=== PATIENT | male | born 1985 | race Caucasian/White ===

== ENCOUNTER 2017-08-16 11:21 | Emergency (ER) | payer OTHER, SELFPAY ==
--- NOTE | 2017-08-16 11:35 | ED.MALEGU ---
HPI - Male Genitourinary General Chief complaint: Urogenital-Male Stated complaint: KIDNEY STONES Time Seen by Provider: 08/16/17 11:29 Source: patient Mode of arrival: ambulatory Limitations: no limitations History of Present Illness HPI Narrative: 32-year-old male sent over from the walk-in clinic for concerns of a right-sided ureteral stone. Patient states that for the past 2 weeks he has had off and on pain in his right flank that has radiated to his groin. Has had blood in his urine. States that he is still urinating without problems. Has not had any abdominal pain or vomiting. No testicular pain. States he has had a renal stone in the past but that was greater than 10 years ago. He states this feels similar to that. He states that he was unable to passed that stone on his own and had to have a stent placed. Related Data Home Medications Medication Instructions Recorded Confirmed Marijuana 1 ea PRN PRN 08/16/17 08/16/17 ibuprofen 1 tab PO PRN PRN 08/16/17 08/16/17 Previous Rx's Medication Instructions Recorded tamsulosin 0.4 mg PO DAILY #14 cap 08/16/17 Allergies Allergy/AdvReac Type Severity Reaction Status Date / Time No Known Drug Allergies Allergy Unverified 08/16/17 11:02 Review of Systems Constitutional Denies chills, Denies fever(s), Denies lethargy and Denies weakness Cardiovascular Denies chest pain, Denies irregular heart rhythm, Denies lightheadedness, Denies palpitations, Denies dyspnea, Denies dyspnea on exertion and Denies orthopnea Respiratory Denies cough, Denies dyspnea, Denies dyspnea on exertion and Denies wheezing Gastrointestinal Gastrointestinal: Denies diarrhea, Denies nausea and Denies vomiting Genitourinary Reports hematuria, Denies difficulty urinating, Denies genital lesions, Denies genital pain and Denies dysuria Musculoskeletal Denies back pain, Denies muscle weakness, Denies numbness and Denies tingling Integumentary/Breasts Denies pruritus, Denies erythema, Denies rash and Denies wounds Neurologic Denies numbness, Denies tingling and Denies weakness Endocrine Denies palpitations Hematologic/Lymphatic Denies easy bruising Allergic/Immunologic Denies wheezing PFSH Social History Smoking Status: Current every day smoker Exam Initial Vital Signs Initial Vital Signs: Vital Signs Temperature 98.0 F 08/16/17 11:38 Pulse Rate 65 08/16/17 11:38 Respiratory Rate 18 08/16/17 11:38 Blood Pressure 129/100 H 08/16/17 11:38 Pulse Oximetry 100 08/16/17 11:38 Resp Effort & Inspection: normal respiratory effort, able to speak in complete sentences, no respiratory distress and no use of accessory muscles Auscultation: clear to auscultation bilaterally, no rales, no rhonchi and no wheezes Cardio Rate: regular rate Rhythm: regular rhythm Heart Sounds: no click, no gallops, no murmurs and no rubs Pulses: normal peripheral pulses GI Inspection: non-distended Palpation: soft, no hepatosplenomegaly, No firm, No guarding, No pulsatile mass and No tender External: normal external exam, circumcised, no lacerations, no lesions, no scrotal swelling, nontender and other (No inguinal) Back/Spine/Pelvis Back: No CVA tenderness Cervical Spine: cervical ROM normal and No pain with cervical ROM Thoracic/Lumbar Spine: thoracic and lumbar spine normal to inspection Other: No CVA tenderness Skin General: no rashes or lesions noted, No jaundice and No petechiae Course Orders Ordered: ED Orders 08/16/17 11:39 CT kidney ureter bladder (KUB) Stat Urine Culture Stat 08/16/17 11:50 Basic Metabolic Panel Stat Complete Blood Count AUTO DIFF Stat Vital Signs - 8 hr 08/16/17 11:38 Temperature 98.0 F Pulse Rate 65 Respiratory Rate 18 Blood Pressure 129/100 H Pulse Oximetry 100 MDM - Male Genitourinary Lab Data Attestation: I reviewed the patient's lab results. Result diagrams: 08/16/17 11:50 08/16/17 11:50 Lab Results 08/16/17 08/16/17 Range/Units 11:50 11:50 WBC 9.5 (4.5-11.0) X10^3/uL RBC 4.72 (4.5-5.9) X10^6/uL Hgb 14.6 (13.5-17.5) g/dL Hct 42.9 (41-53) % MCV 90.9 (80-100) fL MCH 31.0 (26-34) PG MCHC 34.1 (30-36) % RDW 13.8 (11.6-14.8) % Plt Count 322 (150-400) X10^3/uL Neut % (Auto) 59.6 (50-75) % Lymph % (Auto) 29.7 (25-40) % [place] % (Auto) 9.3 (3-14) % Eos % (Auto) 0.8 L (2-4) % Baso % (Auto) 0.6 (0-2) % Neut # (Auto) 5700 (5638-3680) /uL Sodium 141 (137-145) mmol/L Potassium 4.0 (3.4-5.1) mmol/L Chloride 106.0 (98-107) mmol/L Carbon Dioxide 26.0 (22-32) mmol/L BUN 12.0 (9-20) mg/dL Creatinine 0.80 (0.66-1.25) mg/dL Estimated GFR > 60.0 (>60) mL/min BUN/Creatinine Ratio 15.0 (6-22) Glucose 86 (70-100) mg/dL Calcium 8.9 (8.4-10.2) mg/dL Imaging Data CT scan - abdomen: Radiologist's impression: PROCEDURE: CT KIDNEY URETER BLADDER (KUB) INDICATIONS: Right sided flank and groin pain for 2 weeks TECHNIQUE: Noncontrast 5 mm thick sections acquired from the diaphragms to the symphysis. 5 mm thick coronal and sagittal reformats were then performed. For radiation dose reduction, the following was used: automated exposure control, adjustment of mA and/or kV according to patient size. COMPARISON: None. FINDINGS: Image quality: Excellent. Lung bases: Lung bases are clear. There is days 3 mm subpleural nodule in the left lower lobe laterally, image 3. Heart size is normal. Urinary system: The left kidney is normal. The right kidney is hydronephrotic secondary to a 6 mm obstructing stone in the distal one third of the ureter. The stone shows internal attenuation of 991. The urinary bladder shows normal wall thickness. No bladder calculi. Other solid organs: Liver is normal in size. Gallbladder is normal. Pancreas is normal in contours. Spleen is normal in size. No adrenal nodules. Peritoneum and bowel: Unenhanced bowel loops demonstrate normal wall thickness and caliber. Normal appendix. No free fluid or air. Nodes and vessels: No retroperitoneal or mesenteric adenopathy by size criteria. Aorta and inferior vena cava are normal in caliber. Abdominal wall: No ventral hernias. Pelvis: No free pelvic fluid. No inguinal hernias or adenopathy. Bones: No suspicious bony lesions. No vertebral body compression fractures. IMPRESSION: 1. Right hydroureteronephrosis secondary to an obstructing 6 mm stone in the distal right ureter at the S1 level. No additional renal calculi seen. 2. Normal appendix is identified. 3. Small left lower lobe pulmonary nodule, likely postinflammatory but indeterminate. A noncontrast CT chest is suggested in 3-6 months. Dictated by: Pablo Howard M.D. on 08/16/2017 at 12:09 MDM Narrative Medical decision making narrative: Patient is nontoxic appearing. No signs of urinary tract infection does have a 6 mm stone on the right with mild hydro of the right kidney. Renal functions unremarkable. Patient declined any pain medication. He states that he has had to have the stone removed in the past operatively. He does not have a primary doctor here in the area. No indication for emergent consultation to Urology. No indication for antibiotics. Will send home with Flomax with the understanding that it is unlikely to be helpful however there is little downside to using this medication and if there is any possibility that will help with movement of the stone it will be helpful. Patient was given follow-up information for Urology Clinic. He was instructed he needed to contact his insurance company to make sure that everything is covered. He was given return precautions. He expressed understanding and agreement with plan. Discharge Plan Departure Patient Disposition: Home, Self-Care Clinical Impression: Right ureteral calculus, Incidental lung nodule Instructions: Kidney Stones -- Adult Activity Restrictions/Additional Instructions: You can call the [facility] urology group at [phone] for a follow-up. Make sure you contact your insurance company to help with this. An incidental lung nodule was found on your CT scan today. It is recommended that you have a follow-up CT in 6 months. This can be ordered by your primary doctor. I recommend that you find a primary doctor here in the area to help with this. Return to the emergency department for any new symptoms, worsening symptoms, inability to urinate, fevers, worsening pain, or any other concerning symptoms Prescriptions: New tamsulosin 0.4 mg capsule,extended release 24hr 0.4 mg PO DAILY Qty: 14 RF: 0 No Action ibuprofen 200 mg Tablet 1 tab PO PRN PRN (Reason: Pain, Mild) RF: 0 Marijuana 1 ea PRN PRN (Reason: recreational and for pain) RF: 0
[2017-08-16 11:38] VITALS: BP 129/100; PULSE 65; RESP 18; TEMP 36.7; O2SAT 100
--- NOTE | 2017-08-16 11:39 | DI.CT.S_ITS ---
PROCEDURE: CT KIDNEY URETER BLADDER (KUB) INDICATIONS: Right sided flank and groin pain for 2 weeks TECHNIQUE: Noncontrast 5 mm thick sections acquired from the diaphragms to the symphysis. 5 mm thick coronal and sagittal reformats were then performed. For radiation dose reduction, the following was used: automated exposure control, adjustment of mA and/or kV according to patient size. COMPARISON: None. FINDINGS: Image quality: Excellent. Lung bases: Lung bases are clear. There is days 3 mm subpleural nodule in the left lower lobe laterally, image 3. Heart size is normal. Urinary system: The left kidney is normal. The right kidney is hydronephrotic secondary to a 6 mm obstructing stone in the distal one third of the ureter. The stone shows internal attenuation of 991. The urinary bladder shows normal wall thickness. No bladder calculi. Other solid organs: Liver is normal in size. Gallbladder is normal. Pancreas is normal in contours. Spleen is normal in size. No adrenal nodules. Peritoneum and bowel: Unenhanced bowel loops demonstrate normal wall thickness and caliber. Normal appendix. No free fluid or air. Nodes and vessels: No retroperitoneal or mesenteric adenopathy by size criteria. Aorta and inferior vena cava are normal in caliber. Abdominal wall: No ventral hernias. Pelvis: No free pelvic fluid. No inguinal hernias or adenopathy. Bones: No suspicious bony lesions. No vertebral body compression fractures. IMPRESSION: 1. Right hydroureteronephrosis secondary to an obstructing 6 mm stone in the distal right ureter at the S1 level. No additional renal calculi seen. 2. Normal appendix is identified. 3. Small left lower lobe pulmonary nodule, likely postinflammatory but indeterminate. A noncontrast CT chest is suggested in 3-6 months. Dictated by: Pablo Howard M.D. on 08/16/2017 at 12:09 Approved by: Pablo Howard M.D. on 08/16/2017 at 12:16
[2017-08-16 12:00] LABS: Add Manual Diff / Slide Review NO; Basophils Percent Auto 0.6 % (0-2); Eosinophils Percent Auto 0.8 % (2-4); Hematocrit 42.9 % (41-53); Hemoglobin 14.6 g/dL (13.5-17.5); Lymphocytes Percent Auto 29.7 % (25-40); Mean Corpuscular HGB Conc 34.1 % (30-36); Mean Corpuscular Volume 90.9 fL (80-100); Monocytes Percent Auto 9.3 % (3-14); Neutrophils Absolute Auto 5700 /uL (3000-5900); Neutrophils Percent Auto 59.6 % (50-75); Platelet Count 322 X10^3/uL (150-400); Red Blood Cell Count 4.72 X10^6/uL (4.5-5.9); Red Cell Distribution Width 13.8 % (11.6-14.8); White Blood Cell Count 9.5 X10^3/uL (4.5-11.0)
[2017-08-16 12:20] LABS: Calcium 8.9 mg/dL (8.4-10.2); Estimated Glomerular Filt Rate > 60.0 mL/min (>60); Glucose 86 mg/dL (70-100); HEMOLYSIS < 15 (0-50); Sodium 141 mmol/L (137-145)
== END 2017-08-16 13:23 | disposition home or self-care (01) ==
PROVIDERS: Emergency Provider Emergency Medicine
DX: N20.1 Calculus of ureter (principal); R91.1 Solitary pulmonary nodule
CPT/HCPCS: 36415; 74176; 80048; 85025; 99282; 99284

== ENCOUNTER → 2017-08-30 16:40 | Outpatient (CLI) | payer OTHER, SELFPAY | PROVIDERS: Visit Provider Physician Assistant | DX: N13.8 Other obstructive and reflux uropathy (principal); N20.0 Calculus of kidney; N20.1 Calculus of ureter | CPT/HCPCS: 87086 ==

== ENCOUNTER → 2017-09-09 13:53 | Outpatient (CLI) | payer OTHER, SELFPAY ==
--- NOTE | 2017-09-09 14:06 | DI.CT.S_ITS ---
PROCEDURE: CT KIDNEY URETER BLADDER (KUB) INDICATIONS: 32 year-old male with kidney stones. TECHNIQUE: Noncontrast 5 mm thick sections acquired from the diaphragms to the symphysis. 5 mm thick coronal and sagittal reformats were then performed. For radiation dose reduction, the following was used: automated exposure control, adjustment of mA and/or kV according to patient size. COMPARISON: [facility], CT, CT KIDNEY URETER BLADDER (KUB), 08/16/2017, 11:51. FINDINGS: Image quality: Excellent. Lung bases: Lung bases are clear, except for minimal right lung base scarring. Previously noted lateral left lower lobe subpleural nodule has become less apparent. Heart size is normal. Urinary system: Both kidneys are normal in size. No kidney stones. Mild right hydronephrosis has decreased. Previously noted 7 x 6 x 5 mm right ureteral stone has migrated approximately 4.5 cm distally, not yet reaching the ureterovesical junction. Left ureter appears nondistended throughout its course. Bladder wall thickness is normal; no calcified bladder stones. Other solid organs: Liver is normal in size. Gallbladder wall thickness is normal. Pancreas is normal in contours. Spleen is normal in size. No adrenal nodules. Peritoneum and bowel: Unenhanced bowel loops demonstrate normal wall thickness and caliber. The appendix appears normal. No free fluid or air. Nodes and vessels: No retroperitoneal or mesenteric adenopathy by size criteria. Aorta and inferior vena cava are normal in caliber. Abdominal wall: No ventral hernias. Pelvis: No free pelvic fluid. No inguinal hernias or adenopathy. Bones: No suspicious bony lesions. No vertebral body compression fractures. IMPRESSION: 1. 7 x 6 x 5 mm right ureteral stone has migrated approximately 4.5 cm inferiorly into the distal right ureter, not yet reaching the right ureterovesical junction. 2. Mild right hydronephrosis has decreased but not resolved. Dictated by: Tim Escalante M.D. on 09/09/2017 at 15:58 Approved by: Tim Escalante M.D. on 09/09/2017 at 16:06
== END ==
PROVIDERS: Visit Provider Urology
DX: N13.2 Hydronephrosis with renal and ureteral calculous obstruction (principal)
CPT/HCPCS: 74176